=== PATIENT | male | born 2000 | race Caucasian/White ===

== ENCOUNTER 2021-06-22 18:11 | Emergency (ER) | payer OTHER ==
[~2021-06-22] VITALS: Ht 185.4 cm; Wt 104.3 kg
[2021-06-22 18:11] VITALS: BP_SYST 111
--- NOTE | 2021-06-22 18:11 | NUR ---
BROUGHT OUTSIDE TO TRIAGE TENT AND TRIAGED. AWAITING ER BED.
--- NOTE | 2021-06-22 18:28 | NUR ---
DR BLEVINS OUT TO TRIAGE TENT TO EVALUATE PT.
--- NOTE | 2021-06-22 18:40 | NUR ---
RT OUT TO TRIAGE TENT FOR TREATMENT
[2021-06-22] MEDS ORDERED: IPRATROPIUM/ALBUTEROL SULFATE 3 ML AMPUL.NEB (DUONEB) INH ONE (18:45)
[2021-06-22] MEDS ORDERED: predniSONE 20 MG TABLET PO ONE (18:45)
--- NOTE | 2021-06-22 19:05 | NUR ---
Mel greer in ED - 06/22/21 at 1920 by DARNELL Abel ALONZO.
[2021-06-22] MEDS ORDERED: IBUP-1969 PO (20:09)
[2021-06-22] MEDS ORDERED: ALBMDI INH (20:09)
--- NOTE | 2021-06-22 20:19 | NUR ---
PT SWABBED FOR COVID. SPECIMEN SENT TO LAB FOR ANALYSIS.
--- NOTE | 2021-06-22 20:20 | NUR ---
Patient given written and verbal discharge instructions and verbalizes understanding. DR. GEN BIRMINGHAM MD discussed with patient the results and treatment provided. Patient in stable condition. ID arm band removed. Rx of MOTRIN AND INHALER given. Patient educated on pain management and to follow up with PMD. Pain Scale 0/10. Opportunity for questions provided and answered. Medication side effect fact sheet provided.
== END 2021-06-22 20:20 | disposition home or self-care (01) ==
LOC: SED 18:11
DX: J18.9 Pneumonia, unspecified organism (principal); Z20.822 Contact with and (suspected) exposure to COVID-19
CPT/HCPCS: 71045; 94640; 99284; C9803; J7512; U0003

== ENCOUNTER 2021-06-27 00:37 | Emergency (ER) | payer OTHER, SELFPAY ==
[~2021-06-27] VITALS: Ht 185.4 cm; Wt 104.3 kg
[~2021-06-27 00:37] MED LIST: ALBMDI INH; IBUP-1969 PO
[2021-06-27 00:45] VITALS: BP_SYST 124
--- NOTE | 2021-06-27 00:45 | NUR ---
Patient to ER bed ten to for evaluation. Side rails up. Report given to Efra.
[2021-06-27] MEDS ORDERED: NACL 0.9% 1,000 ML IV ONE ×2 (01:00→04:45)
--- NOTE | 2021-06-27 01:13 | NUR ---
pt came to ER after feeling left sided chest pain after coughing and breathing hard . pt has not been feeling good for the past month and has been seen in an ER a week ago and reported he had pneumonia and took 7 days of ABX. He state he still has SOB even after the ABX wiht no excertion. pt has obvious heard time breathing. pt reports 5/10 pain while breathing and is A&Ox4
--- NOTE | 2021-06-27 01:25 | NUR ---
RADIOLOGY AT BEDSIDE
[2021-06-27 01:30] LABS: BASOPHILS % (AUTO) 0.3 % (0.0-2.0); EOSINOPHILS # (AUTO) 0.1 K/uL (0.0-0.4); EOSINOPHILS % (AUTO) 0.8 % (0.0-4.0); HEMATOCRIT 39.5 % (36-54); HEMOGLOBIN 12.9 g/dL (14.0-18.0); LYMPHOCYTES # (AUTO) 3.6 K/uL (1.0-5.5); LYMPHOCYTES % (AUTO) 22.8 % (20.5-51.5); MEAN CORPUSCULAR HEMOGLOBIN 28 pg (27-31); MEAN CORPUSCULAR HGB CONC 33 % (32-36); MEAN CORPUSCULAR VOLUME 86 fL (79.0-98.0); MONOCYTES # (AUTO) 1.2 K/uL (0.0-1.0); MONOCYTES % (AUTO) 7.9 % (1.7-9.3); NEUTROPHILS # (AUTO) 10.7 K/uL (1.8-7.7); NEUTROPHILS % (AUTO) 68.2 % (40.0-70.0); PLATELET COUNT (AUTO) 384 K/uL (130-430); WHITE BLOOD COUNT (AUTO) 15.6 K/uL (4.8-10.8)
--- NOTE | 2021-06-27 01:32 | NUR ---
ER Dr. Mcginnis at bedside examining patient.
--- NOTE | 2021-06-27 01:40 | NUR ---
RT AT BEDSIDE
[2021-06-27] MEDS ORDERED: ALBUTEROL SULFATE 0.083% 2.5 MG/3 ML VIAL.NEB INH ONE ×2 (01:44→01:45)
[2021-06-27] MEDS ORDERED: IPRATROPIUM BROM 0.5 MG/2.5 ML VIAL.NEB (ATROVENT) INH ONE (01:44)
[2021-06-27 01:45] LABS: CALCIUM 9.2 mg/dL (8.4-11.0); CREATININE 0.95 mg/dL (0.55-1.30)
[2021-06-27] MEDS ORDERED: DEXAMETHASONE SOD PHOSPHATE 10 MG/ML VIAL IVP ONE (01:45)
[2021-06-27] MEDS ORDERED: MAGNESIUM SULFATE 50 ML IV ONE (01:45)
[2021-06-27 01:51] LABS: TOTAL BILIRUBIN 0.7 mg/dL (0.0-1.0)
--- NOTE | 2021-06-27 02:08 | NUR ---
PTS IS BREATHING AND DOING ALOT BETTER WITH THE TX AND MEDS. RESTING COMFORTABLEY IN BED
[2021-06-27] MEDS ORDERED: AZITHROMYCIN 500 MG/VIAL (ZITHROMAX) IV ONE (02:28)
[2021-06-27] MEDS ORDERED: cefTRIAXone 2 GM VIAL ONE (02:28)
[2021-06-27] MEDS ORDERED: AZITHROMYCIN 500 MG in NS 250 ML IV ONE (02:30)
--- NOTE | 2021-06-27 02:41 | NUR ---
# 20 gauge angiocath placed to LAC. Use of asceptic technique. Opsite placed over site. Blood return noted. Blood for lab drawn from site. Flushed with 10 cc of normal saline. No evidence of infiltration noted. Patient tolerated well.
--- NOTE | 2021-06-27 04:07 | NUR ---
PT BELONGINGS LIST DONE
--- NOTE | 2021-06-27 04:07 | NUR ---
Medication reconciliation completed with information provided by PATIENT. Any prior medication reconciliation on file was reviewed and corrected.
--- NOTE | 2021-06-27 04:07 | NUR ---
PT IS FULL CODE
[2021-06-27] MEDS ORDERED: PROM5SYR PO (05:31)
[2021-06-27] MEDS ORDERED: CEFU250T85 PO (05:31)
[2021-06-27] MEDS ORDERED: DOXY100C5 PO (05:31)
[2021-06-27] MEDS ORDERED: ALBMDI INH (05:31)
[2021-06-27] MEDS ORDERED: PRED20TA PO (05:31)
--- NOTE | 2021-06-27 06:08 | NUR ---
Patient given written and verbal discharge instructions and verbalizes understanding. ER MD discussed with patient the results and treatment provided. Patient in stable condition. ID arm band removed. IV catheter removed intact and dressing applied, no active bleeding. Rx of ALBUTEROL, CEFTIN, DOXYCLCLINE, PREDNISONE, AND PRMETHAZINE/CODEINE given. Patient educated on pain management and to follow up with PMD. Pain Scale 3/10. Opportunity for questions provided and answered. Medication side effect fact sheet provided.
[2021-06-27 06:10] VITALS: BP_SYST 122
== END 2021-06-27 06:10 | disposition home or self-care (01) ==
LOC: SED 00:37
DX: J18.9 Pneumonia, unspecified organism (principal); A41.9 Sepsis, unspecified organism; Z20.822 Contact with and (suspected) exposure to COVID-19
CPT/HCPCS: 36415; 71045; 80053; 83605; 83880; 85025; 87040; 87426; 93005; 94640; 96365; 96366; 96368; 96375; 99285; J0456; J0696; J1100; J3475; J7030; J7613

== ENCOUNTER 2021-11-05 11:45 | Emergency (ER) | payer OTHER, SELFPAY ==
[~2021-11-05] VITALS: Ht 185.4 cm; Wt 99.8 kg
[~2021-11-05 11:45] MED LIST changes: +CEFU250T85 PO; +DOXY100C5 PO; -IBUP-1969 PO; +PRED20TA PO; +PROM5SYR PO
--- NOTE | 2021-11-05 13:00 | NUR ---
SEEN BY DR. CALLAHAN
[2021-11-05 14:17] VITALS: BP_SYST 137
[2021-11-05 16:41] VITALS: BP_SYST 129
--- NOTE | 2021-11-05 16:41 | NUR ---
Patient given written and verbal discharge instructions and verbalizes understanding. ER MD discussed with patient the results and treatment provided. Patient in stable condition. ID arm band removed. IV catheter removed intact and dressing applied, no active bleeding. Rx of given. Patient educated on pain management and to follow up with PMD. Pain Scale 0/10. Opportunity for questions provided and answered. Medication side effect fact sheet provided.
== END 2021-11-05 16:36 | disposition home or self-care (01) ==
LOC: SED 11:45
DX: J18.9 Pneumonia, unspecified organism (principal); Z79.899 Other long term (current) drug therapy; Z20.822 Contact with and (suspected) exposure to COVID-19
CPT/HCPCS: 36415; 71045; 99284

== ENCOUNTER 2022-03-20 23:32 | Emergency (ER) | payer OTHER ==
[~2022-03-20] VITALS: Ht 185.4 cm; Wt 99.8 kg
[2022-03-20 23:35] VITALS: BP_SYST 118
[2022-03-21 00:14] LABS: BASOPHILS # (AUTO) 0.1 K/uL (0.0-0.2); BASOPHILS % (AUTO) 0.6 % (0.0-2.0); EOSINOPHILS # (AUTO) 0.1 K/uL (0.0-0.4); EOSINOPHILS % (AUTO) 0.6 % (0.0-4.0); HEMATOCRIT 35.8 % (36-54); HEMOGLOBIN 11.8 g/dL (14.0-18.0); LYMPHOCYTES # (AUTO) 3.1 K/uL (1.0-5.5); LYMPHOCYTES % (AUTO) 20.2 % (20.5-51.5); MEAN CORPUSCULAR HEMOGLOBIN 26 pg (27-31); MEAN CORPUSCULAR HGB CONC 33 % (32-36); MEAN CORPUSCULAR VOLUME 79 fL (79.0-98.0); MONOCYTES % (AUTO) 6.4 % (1.7-9.3); NEUTROPHILS % (AUTO) 72.2 % (40.0-70.0); PLATELET COUNT (AUTO) 308 K/uL (130-430); RED BLOOD CELL COUNT(AUTO) 4.53 MIL/uL (4.2-6.2); RED CELL DISTRIBUTION WIDTH 16.8 % (9.0-15.0); WHITE BLOOD COUNT (AUTO) 15.3 K/uL (4.8-10.8)
[2022-03-21 00:26] LABS: ANION GAP 6 (5-15); CALCIUM 8.4 mg/dL (8.4-11.0); CHLORIDE 102 mmol/L (98-107); CREATININE 1.09 mg/dL (0.55-1.30); GLUCOSE 148 mg/dL (70-99); POTASSIUM 3.3 mmol/L (3.5-5.1); SODIUM SERUM 137 mmol/L (136-145); UREA NITROGEN, BLOOD 9 mg/dL (8-21)
[2022-03-21 00:35] LABS: ALANINE AMINOTRANSFERASE 16 U/L (12-78); ALBUMIN 2.9 g/dL (3.4-4.8); ASPARTATE AMINOTRANSFERASE 13 U/L (10-37); TOTAL BILIRUBIN 0.2 mg/dL (0.0-1.0)
[2022-03-21 00:43] LABS: GFR AFRICAN AMERICAN 109 mL/min (>90)
[2022-03-21] MEDS ORDERED: AZITHROMYCIN 500 MG in NS 250 ML IV ONE (02:00)
[2022-03-21] MEDS ORDERED: cefTRIAXone 1 GM IVPB PREMIX 50 ML IV ONE ×2 (02:00→05:00)
[2022-03-21] MEDS ORDERED: AZITHROMYCIN 500 MG/VIAL (ZITHROMAX) IV ONE (02:28)
[2022-03-21] MEDS ORDERED: AZITHROMYCIN 250 MG TABLET PO ONE (05:00)
[2022-03-21] MEDS ORDERED: DOXY100C5 PO (05:57)
[2022-03-21] MEDS ORDERED: ALBMDI INH (05:57)
[2022-03-21 06:24] VITALS: BP_SYST 119
== END 2022-03-21 06:24 | disposition home or self-care (01) ==
LOC: SED 23:32
DX: J18.9 Pneumonia, unspecified organism (principal); E87.6 Hypokalemia; Z20.822 Contact with and (suspected) exposure to COVID-19
CPT/HCPCS: 36415; 36600; 71046; 80053; 82803; 83605; 83880; 84484; 85025; 85379; 87040; 87426; 93005; 96365; 96367; 99285; J0456; J0696